=== PATIENT | female | born 1985 | race American Indian/Alaskan Native ===

== ENCOUNTER 2016-09-30 15:09 | Emergency (ER) | payer SELFPAY ==
[2016-09-30 17:02] LABS: Basophils % (Auto) 0.3 % (0.0-1.8); Eosinophils % (Auto) 0.7 % (0.0-4.3); Hematocrit 39.6 % (30.3-42.9); Hemoglobin 13.1 gm/dl (10.1-14.3); Mean Corpuscular HGB Conc 33 % (30-34); Mean Corpuscular Hemoglobin 31 pg (28-32); Mean Corpuscular Volume 95 fl (79-97); Platelet Count 265 K/mm3 (140-440); Red Blood Count 4.18 M/mm3 (3.65-5.03); Red Cell Distribution Width 14.2 % (13.2-15.2); White Blood Count 7.3 K/mm3 (4.5-11.0)
[2016-09-30 17:07] LABS: Alanine Aminotransferase 16 units/L (7-56); Albumin 4.3 g/dL (3.9-5); Albumin/Globulin Ratio 1.7 %; Alkaline Phosphatase 39 units/L (35-129); Anion Gap 19 mmol/L; BUN/Creatinine Ratio 11.66; Blood Urea Nitrogen 7 mg/dL (7-17); Calcium 9.1 mg/dL (8.4-10.2); Carbon Dioxide 22 mmol/L (22-30); Chloride 101.1 mmol/L (98-107); Glucose 86 mg/dL (65-100); Lipase 23 units/L (13-60); Potassium 3.8 mmol/L (3.6-5.0); Sodium 138 mmol/L (137-145); Total Protein 6.8 g/dL (6.3-8.2)
[2016-09-30 19:42] LABS: Bacteria,Urine 1+ /HPF (Negative); Bilirubin,Urine NEG (Negative); Blood,Urine NEG (Negative); Ketones,Urine NEG (Negative); Leukocyte Esterase,Urine TR (Negative); Mucus,Urine FEW /HPF; Nitrite,Urine NEG (Negative); Protein,Urine <15 mg/dL mg/dL (Negative); Urobilinogen,Urine < 2.0 mg/dL (<2.0)
--- NOTE | 2016-10-01 02:37 | Ultrasound Report ---
FINAL REPORT PROCEDURE: Obstetrical ultrasound, transvaginal and transabdominal TECHNIQUE: Real-time transabdominal and transvaginal sonography of the uterus, placenta, amniotic fluid, adnexa, and fetus was performed with image documentation. Measurements were obtained to determine age/size. M-mode Doppler was used to document heartbeat. CPT 23671 and 99848 HISTORY: positive COMPARISON: No prior studies are available for comparison. FINDINGS: ADDITIONAL GESTATION: None. CRL: 5.3 mm, which corresponds to a gestational age of: 6 weeks, 2 days. Yolk Sac: Normal. Embryonic Cardiac Activity: 1 1 7 beats per minute Gestational Sac: Normal. Amniotic fluid: Normal. Cervix: Normal. Right Ovary: There is a dominant cyst measuring 2.3 centimeters Left Ovary: Normal. Estimated delivery date: 05/25/2017 Uterus and adnexa: Normal. IMPRESSION: 1. Single live intrauterine gestation at approximately 6 weeks, 2 days. 2. EDC by US 05/25/2017 3. Complete anatomic survey at 18-20 weeks suggested.
--- NOTE | 2016-10-01 02:37 | Ultrasound Report ---
FINAL REPORT PROCEDURE: Obstetrical ultrasound, transvaginal and transabdominal TECHNIQUE: Real-time transabdominal and transvaginal sonography of the uterus, placenta, amniotic fluid, adnexa, and fetus was performed with image documentation. Measurements were obtained to determine age/size. M-mode Doppler was used to document heartbeat. CPT 00833 and 31646 HISTORY: positive COMPARISON: No prior studies are available for comparison. FINDINGS: ADDITIONAL GESTATION: None. CRL: 5.3 mm, which corresponds to a gestational age of: 6 weeks, 2 days. Yolk Sac: Normal. Embryonic Cardiac Activity: 1 1 7 beats per minute Gestational Sac: Normal. Amniotic fluid: Normal. Cervix: Normal. Right Ovary: There is a dominant cyst measuring 2.3 centimeters Left Ovary: Normal. Estimated delivery date: 05/25/2017 Uterus and adnexa: Normal. IMPRESSION: 1. Single live intrauterine gestation at approximately 6 weeks, 2 days. 2. EDC by US 05/25/2017 3. Complete anatomic survey at 18-20 weeks suggested.
[2016-10-01] MEDS ORDERED: ZOFRAN IV ONE (03:26)
[2016-10-01] MEDS ORDERED: NACL 0.9% 1000 ML 1,000 ML IV ONE (03:26)
--- NOTE | 2016-10-01 04:10 | Emergency Department Report ---
ED Abdominal Pain HPI - General Chief Complaint: Abdominal Pain Stated Complaint: STOMACH PAIN/NAUSEA/VAG SPOTTING Time Seen by Provider: 10/01/16 02:17 Source: patient Mode of arrival: Ambulatory Limitations: No Limitations - History of Present Illness Initial Comments: 30-year-old female with a past medical history of hypertension presents to the hospital complaining of nausea, vomiting and vaginal spotting 2 days. Patient had a recent home test but she also states she has gastroparesis. Patient is intermittent 7/10 crampy abdominal pain without aggravating or alleviating factors. She denies hematemesis, fever, hematochezia, diarrhea, or dysuria. Patient currently takes lisinopril/hctz and metoprolol for hypertension but has not had her medications in 3 days. It this is her fifth and she has 4 living children. Severity scale (0 -10): 6 - Related Data Home Medications Medication Instructions Recorded Confirmed Last Taken Dicyclomine [Bentyl] 10 mg PO QID 10/01/16 10/01/16 09/30/16 22:00 Lisinopril/Hydrochlorothiazide 1 tab PO QDAY 10/01/16 10/01/16 09/30/16 [Zestoretic 20-25 mg] Metoprolol Xl [Metoprolol 50 mg PO QDAY 10/01/16 10/01/16 09/30/16 SUCCINATE ER TAB] Omeprazole Magnesium [PriLOSEC Otc] 20 mg PO QID 10/01/16 10/01/16 09/30/16 22: 00 Previous Rx's Medication Instructions Recorded Last Taken Type Labetalol [Normodyne TAB] 200 mg PO BID #60 tablet 10/01/16 Unknown Rx Ondansetron [Zofran Odt] 4 mg PO Q8HR PRN #20 tab.rapdis 10/01/16 Unknown Rx Vit W-Ca,Fe,FA(<1 mg) 1 each PO DAILY #30 tablet 10/01/16 Unknown Rx [ Vitamins] Allergies Allergy/AdvReac Type Severity Reaction Status Date / Time No Known Allergies Allergy Unverified 09/30/16 16:24 ED Review of Systems ROS: Stated complaint: STOMACH PAIN/NAUSEA/VAG SPOTTING Other details as noted in HPI Comment: All other systems reviewed and negative Other: Constitutional: No fevers chills Eyes: No eye pain visual changes ENT: No ear pain or throat pain Neck: Denies pain Respiratory: Denies cough wheezing shortness of breath Cardiovascular: Denies chest pain, palpitations, syncope GI: As per HPI : Denies dysuria, urinary frequency, or urgency Musculoskeletal: Denies back pain, joint swelling Skin: Denies rash, lesions, erythema Neurologic: Denies headache, numbness, weakness Psychiatric: Denies suicidal ideation, hallucinations ED Past Medical Hx - Past Medical History Previous Medical History?: Yes Hx Hypertension: Yes Additional medical history: Gastroparesis - Surgical History Past Surgical History?: No - Social History Smoking Status: Never Smoker Substance Use Type: None - Medications Home Medications: Home Medications Medication Instructions Recorded Confirmed Last Taken Type Dicyclomine [Bentyl] 10 mg PO QID 10/01/16 10/01/16 09/30/16 22:00 History Labetalol [Normodyne TAB] 200 mg PO BID #60 tablet 10/01/16 Unknown Rx Lisinopril/Hydrochlorothiazide 1 tab PO QDAY 10/01/16 10/01/16 09/30/16 History [Zestoretic 20-25 mg] Metoprolol Xl [Metoprolol 50 mg PO QDAY 10/01/16 10/01/16 09/30/16 History SUCCINATE ER TAB] Omeprazole Magnesium [PriLOSEC Otc] 20 mg PO QID 10/01/16 10/01/16 09/30/16 22: 00 History Ondansetron [Zofran Odt] 4 mg PO Q8HR PRN #20 tab.rapdis 10/01/16 Unknown Rx Vit W-Ca,Fe,FA(<1 mg) 1 each PO DAILY #30 tablet 10/01/16 Unknown Rx [ Vitamins] ED Physical Exam - General Limitations: No Limitations - Other Other exam information: General: No limitations, patient is alert in no acute distress Head exam: Atraumatic, normocephalic Eyes exam: Normal appearance, ENT: Moist mucous membrane, normal oropharynx Neck exam: Normal inspection, full range of motion, no meningismus nontender Respiratory exam: Clear to auscultation bilateral, no wheezes, rales, crackles Cardiovascular: Normal rate and rhythm, normal heart sounds Abdomen: Soft, nondistended, mild suprapubic tenderness, with normal bowel sounds, no rebound, or guarding Extremity: Full range of motion normal inspection no deformity Back: Normal Inspection, full range of motion, no tenderness Neurologic: Alert, oriented x3, cranial nerves intact, no motor or sensory deficit Psychiatric: normal affect, normal mood Skin: Warm, dry, intact ED Course Vital Signs 09/30/16 10/01/16 10/01/16 16:19 02:25 02:27 Temperature 98.9 F Pulse Rate 105 H 90 Respiratory 16 16 16 Rate Blood Pressure 154/112 Blood Pressure 143/99 [Left] O2 Sat by Pulse 100 100 Oximetry - Reevaluation(s) Reevaluation #1: 10/01/16 04:13 Normal saline, Zofran ordered ED Medical Decision Making - Lab Data Result diagrams: 09/30/16 16:33 09/30/16 16:33 Lab Results 09/30/16 09/30/16 09/30/16 Range/Units 16:33 16:33 18:48 WBC 7.3 (4.5-11.0) K/mm3 RBC 4.18 (3.65-5.03) M/mm3 Hgb 13.1 (10.1-14.3) gm/dl Hct 39.6 (30.3-42.9) % MCV 95 (79-97) fl MCH 31 (28-32) pg MCHC 33 (30-34) % RDW 14.2 (13.2-15.2) % Plt Count 265 (140-440) K/mm3 Lymph % (Auto) 27.7 (13.4-35.0) % [place] % (Auto) 8.0 H (0.0-7.3) % Eos % (Auto) 0.7 (0.0-4.3) % Baso % (Auto) 0.3 (0.0-1.8) % Lymph # 2.0 (1.2-5.4) K/mm3 [place] # 0.6 (0.0-0.8) K/mm3 Eos # 0.1 (0.0-0.4) K/mm3 Baso # 0.0 (0.0-0.1) K/mm3 Seg Neutrophils % 63.3 (40.0-70.0) % Seg Neutrophils # 4.6 (1.8-7.7) K/mm3 Sodium 138 (137-145) mmol/L Potassium 3.8 (3.6-5.0) mmol/L Chloride 101.1 (98-107) mmol/L Carbon Dioxide 22 (22-30) mmol/L Anion Gap 19 mmol/L BUN 7 (7-17) mg/dL Creatinine 0.6 L (0.7-1.2) mg/dL Estimated GFR > 60 ml/min BUN/Creatinine Ratio 11.66 % Glucose 86 (65-100) mg/dL Calcium 9.1 (8.4-10.2) mg/dL Total Bilirubin 0.60 (0.1-1.2) mg/dL AST 15 (5-40) units/L ALT 16 (7-56) units/L Alkaline Phosphatase 39 (35-129) units/L Total Protein 6.8 (6.3-8.2) g/dL Albumin 4.3 (3.9-5) g/dL Albumin/Globulin Ratio 1.7 % Lipase 23 (13-60) units/L HCG, Quant (0-4) mIU/mL Urine Color Yellow (Yellow) Urine Turbidity Clear (Clear) Urine pH 6.0 (5.0-7.0) Ur Specific [place] 1.017 (1.003-1.030) Urine Protein <15 mg/dl (Negative) mg/dL Urine Glucose (UA) Neg (Negative) mg/dL Urine Ketones Neg (Negative) mg/dL Urine Blood Neg (Negative) Urine Nitrite Neg (Negative) Urine Bilirubin Neg (Negative) Urine Urobilinogen < 2.0 (<2.0) mg/dL Ur Leukocyte Esterase Tr (Negative) Urine WBC (Auto) 6.0 (0.0-6.0) /HPF Urine RBC (Auto) 3.0 (0.0-6.0) /HPF U Epithel Cells (Auto) 2.0 (0-13.0) /HPF Urine Bacteria (Auto) 1+ (Negative) /HPF Urine Mucus Few /HPF Urine HCG, Qual Positive A (Negative) Blood Type Antibody Screen 10/01/16 10/01/16 Range/Units 03:14 03:14 WBC (4.5-11.0) K/mm3 RBC (3.65-5.03) M/mm3 Hgb (10.1-14.3) gm/dl Hct (30.3-42.9) % MCV (79-97) fl MCH (28-32) pg MCHC (30-34) % RDW (13.2-15.2) % Plt Count (140-440) K/mm3 Lymph % (Auto) (13.4-35.0) % [place] % (Auto) (0.0-7.3) % Eos % (Auto) (0.0-4.3) % Baso % (Auto) (0.0-1.8) % Lymph # (1.2-5.4) K/mm3 [place] # (0.0-0.8) K/mm3 Eos # (0.0-0.4) K/mm3 Baso # (0.0-0.1) K/mm3 Seg Neutrophils % (40.0-70.0) % Seg Neutrophils # (1.8-7.7) K/mm3 Sodium (137-145) mmol/L Potassium (3.6-5.0) mmol/L Chloride (98-107) mmol/L Carbon Dioxide (22-30) mmol/L Anion Gap mmol/L BUN (7-17) mg/dL Creatinine (0.7-1.2) mg/dL Estimated GFR ml/min BUN/Creatinine Ratio % Glucose (65-100) mg/dL Calcium (8.4-10.2) mg/dL Total Bilirubin (0.1-1.2) mg/dL AST (5-40) units/L ALT (7-56) units/L Alkaline Phosphatase (35-129) units/L Total Protein (6.3-8.2) g/dL Albumin (3.9-5) g/dL Albumin/Globulin Ratio % Lipase (13-60) units/L HCG, Quant 13744 H (0-4) mIU/mL Urine Color (Yellow) Urine Turbidity (Clear) Urine pH (5.0-7.0) Ur Specific [place] (1.003-1.030) Urine Protein (Negative) mg/dL Urine Glucose (UA) (Negative) mg/dL Urine Ketones (Negative) mg/dL Urine Blood (Negative) Urine Nitrite (Negative) Urine Bilirubin (Negative) Urine Urobilinogen (<2.0) mg/dL Ur Leukocyte Esterase (Negative) Urine WBC (Auto) (0.0-6.0) /HPF Urine RBC (Auto) (0.0-6.0) /HPF U Epithel Cells (Auto) (0-13.0) /HPF Urine Bacteria (Auto) (Negative) /HPF Urine Mucus /HPF Urine HCG, Qual (Negative) Blood Type A POSITIVE Antibody Screen TNR - Radiology Data Radiology results: report reviewed (transvaginal/pelvic ultrasound: 6 week 2 day IUP positive heart) - Medical Decision Making Blood type A+ therefore patient does not require RhoGAM. Patient feels better with ED treatment. Will discharge home with TRAINING REPRESENTATIVE follow-up and symptomatic treatment - Differential Diagnosis gastritis, , gastroparesis, ectopic, UTI Critical Care Time: No Critical care attestation.: If time is entered above; I have spent that time in minutes in the direct care of this critically ill patient, excluding procedure time. ED Disposition Clinical Impression: 6 weeks gestation of , Nausea and vomiting during , Threatened miscarriage, HTN (hypertension), Type A blood, Rh positive Disposition: DC-01 TO HOME OR SELFCARE Is pt being admited?: No Does the pt Need Aspirin: No Condition: Stable Instructions: Threatened Miscarriage (ED), Hypertension (ED) Additional Instructions: Take the medication as prescribed. Return symptoms worsen follow-up with TRAINING REPRESENTATIVE in a primary care doctor. Stop your current blood pressure medication and take the medication prescribed since it is safe in . You will need close follow-up to ensure that the dose is adequate to control your blood pressure. Prescriptions: Labetalol [Normodyne TAB] 200 mg PO BID #60 tablet Ondansetron [Zofran Odt] 4 mg PO Q8HR PRN #20 tab.rapdis PRN Reason: Nausea And Vomiting Vit W-Ca,Fe,FA(<1 mg) [ Vitamins] 1 each PO DAILY #30 tablet Referrals: [facility] [Provider Group] - 3-5 Days (primary care clinic) LAUREANO BAÑUELOS MD [Staff Physician] - 3-5 Days (medical assistant ob gyn) ROME SIMON MD [Staff Physician] - 3-5 Days (primary care doctor) Forms: Work/School Release Form(ED) Time of Disposition: 05:15
[2016-10-01 05:29] VITALS: BP 126/97
== END 2016-10-01 05:33 | disposition home or self-care (01) ==
LOC: ED 15:09
DX: O20.0 Threatened abortion (principal); O21.9 Vomiting of pregnancy, unspecified; R11.0 Nausea; I10 Essential (primary) hypertension; Z3A.01 Less than 8 weeks gestation of pregnancy
CPT/HCPCS: 36415; 76801; 76817; 80053; 81001; 81025; 83690; 84702; 85025; 86850; 86900; 86901; 96361; 96374; 99284; J2405; J7030

== ENCOUNTER 2017-06-16 02:55 | Emergency (ER) | payer MEDICAID ==
[2017-06-16] MEDS ORDERED: ZOFRAN IV ONE (03:45)
[2017-06-16] MEDS ORDERED: NACL 0.9% 1000 ML 1,000 ML IV ONE ×2 (03:45→05:48)
[2017-06-16] MEDS ORDERED: NACL 0.9% 1000 ML 1,000 ML ONE (03:46)
[2017-06-16] MEDS ORDERED: ZOFRAN ONE (03:46)
[2017-06-16 03:51] LABS: Basophils % (Auto) 0.4 % (0.0-1.8); Eosinophils % (Auto) 0.6 % (0.0-4.3); Hematocrit 31.2 % (30.3-42.9); Lymphocytes # (Auto) 2.6 K/mm3 (1.2-5.4); Mean Corpuscular HGB Conc 32 % (30-34); Mean Corpuscular Hemoglobin 29 pg (28-32); Mean Corpuscular Volume 90 fl (79-97); Monocytes # (Auto) 0.3 K/mm3 (0.0-0.8); Monocytes % (Auto) 5.5 % (0.0-7.3); Platelet Count 262 K/mm3 (140-440); Red Blood Count 3.48 M/mm3 (3.65-5.03); Red Cell Distribution Width 14.1 % (13.2-15.2)
[2017-06-16] MEDS ORDERED: MORPHINE IV ONE ×2 (04:26→05:48)
[2017-06-16] MEDS ORDERED: MORPHINE ONE (04:28)
[2017-06-16 05:45] VITALS: BP 128/95
--- NOTE | 2017-06-16 06:12 | Ultrasound Report ---
FINAL REPORT EXAM: US PELVIC COMPLETE HISTORY: vaginal bleeding TECHNIQUE: Routine transabdominal imaging was obtained of the pelvis. Doppler interrogation of the adnexa was obtained. FINDINGS: The uterus is anteverted measuring 16.6 cm x 4.9 cm x 6.8 cm. The endometrial thickness is 5.1 mm and is homogeneous. Ventral to the cervix in the vaginal canal is a complex mass measuring 7.1 cm x 7.2 cm x 7.9 cm with small amount of adjacent free fluid. Given the patient's history in this may represent a complex blood clot/hematoma. Both ovaries are appropriate size contour blood flow and echotexture. The right ovary measures 3.3 cm x 1.6 cm x 2.8 cm. The left ovary measures 2.9 cm x 1.8 cm x 3.1 cm. IMPRESSION: Enlarged uterus with endometrial thickness of 5.1 millimeters. Indeterminate complex echogenic mass in the vaginal canal adjacent to the cervix with small amount of free fluid with measurements as described. Given the patient's history this is most likely a complex hematoma/blood clot. Normal ovaries.
[2017-06-16 06:31] LABS: Bacteria,Urine 1+ /HPF (Negative); Bilirubin,Urine NEG (Negative); Blood,Urine LG (Negative); Color,Urine Red (Yellow); Mucus,Urine FEW /HPF; Urobilinogen,Urine < 2.0 mg/dL (<2.0)
[2017-06-16 06:38] LABS: RBC,Urine > 182.0 /HPF (0.0-6.0)
[2017-06-16] MEDS ORDERED: ROCEPHIN/NS 1 GM/50 ML 1 GM/50 ML BAG IV ONE (06:44)
[2017-06-16] MEDS: cefTRIAXone 1 GM in NACL 0.9% 20 ML IV ONE ×2 (06:53→08:16)
--- NOTE | 2017-06-16 07:16 | Emergency Department Report ---
ED General Adult HPI - General Chief complaint: Vaginal Bleeding Stated complaint: VAG BLEEDING; 4WKS S/P VAG DEL Time Seen by Provider: 06/16/17 06:44 Source: patient Mode of arrival: Ambulatory Limitations: No Limitations - History of Present Illness Initial comments: The patient is 4 weeks . She noted some vaginal bleeding and cramping. His also been having some dysuria. She stated the bleeding was more than a usual period. However it has resolved now. She denies fever chills nausea vomiting or any substantial ongoing abdominal pain. She was delivered at [facility]. -: Gradual, minutes(s) Location: abdomen Radiation: abdomen Quality: other (cramping) Consistency: intermittent Improves with: none Worsens with: none Associated Symptoms: denies other symptoms Treatments Prior to Arrival: none - Related Data Home Medications Medication Instructions Recorded Confirmed Last Taken Dicyclomine [Bentyl] 10 mg PO QID 10/01/16 10/01/16 09/30/16 22:00 Lisinopril/Hydrochlorothiazide 1 tab PO QDAY 10/01/16 10/01/16 09/30/16 [Zestoretic 20-25 mg] Metoprolol Xl [Metoprolol 50 mg PO QDAY 10/01/16 10/01/16 09/30/16 SUCCINATE ER TAB] Omeprazole Magnesium [PriLOSEC Otc] 20 mg PO QID 10/01/16 10/01/16 09/30/16 22: 00 Previous Rx's Medication Instructions Recorded Last Taken Type Labetalol [Normodyne TAB] 200 mg PO BID #60 tablet 10/01/16 Unknown Rx Ondansetron [Zofran Odt] 4 mg PO Q8HR PRN #20 tab.rapdis 10/01/16 Unknown Rx Vit Calc,Iron,Folic 1 each PO DAILY #30 tablet 10/01/16 Unknown Rx [ Vitamins] Cefuroxime Axetil [Ceftin] 250 mg PO Q12H #20 ml 06/16/17 Unknown Rx Ferrous Gluconate [Fergon 325 MG 325 mg PO TID #20 tablet 06/16/17 Unknown Rx tab] HYDROcodone/APAP 5-325 [[place] 1 each PO Q4HR PRN #10 tablet 06/16/17 Unknown Rx 5/325] Allergies Allergy/AdvReac Type Severity Reaction Status Date / Time No Known Allergies Allergy Unverified 09/30/16 16:24 ED Review of Systems ROS: Stated complaint: VAG BLEEDING; 4WKS S/P VAG DEL Other details as noted in HPI Constitutional: denies: chills, fever Eyes: denies: eye pain, eye discharge, vision change ENT: denies: ear pain, throat pain Respiratory: denies: cough, shortness of breath, wheezing Cardiovascular: denies: chest pain, palpitations Endocrine: no symptoms reported Gastrointestinal: as per HPI, abdominal pain. denies: nausea, diarrhea Genitourinary: dysuria. denies: urgency, discharge Musculoskeletal: denies: back pain, joint swelling, arthralgia Skin: denies: rash, lesions Neurological: denies: headache, weakness, paresthesias Psychiatric: denies: anxiety, depression Hematological/Lymphatic: denies: easy bleeding, easy bruising ED Past Medical Hx - Past Medical History Previous Medical History?: Yes Hx Hypertension: Yes Additional medical history: Gastroparesis - Surgical History Past Surgical History?: No - Social History Smoking Status: Former Smoker Substance Use Type: Alcohol - Medications Home Medications: Home Medications Medication Instructions Recorded Confirmed Last Taken Type Dicyclomine [Bentyl] 10 mg PO QID 10/01/16 10/01/16 09/30/16 22:00 History Labetalol [Normodyne TAB] 200 mg PO BID #60 tablet 10/01/16 Unknown Rx Lisinopril/Hydrochlorothiazide 1 tab PO QDAY 10/01/16 10/01/16 09/30/16 History [Zestoretic 20-25 mg] Metoprolol Xl [Metoprolol 50 mg PO QDAY 10/01/16 10/01/16 09/30/16 History SUCCINATE ER TAB] Omeprazole Magnesium [PriLOSEC Otc] 20 mg PO QID 10/01/16 10/01/16 09/30/16 22: 00 History Ondansetron [Zofran Odt] 4 mg PO Q8HR PRN #20 tab.rapdis 10/01/16 Unknown Rx Vit Calc,Iron,Folic 1 each PO DAILY #30 tablet 10/01/16 Unknown Rx [ Vitamins] Cefuroxime Axetil [Ceftin] 250 mg PO Q12H #20 ml 06/16/17 Unknown Rx Ferrous Gluconate [Fergon 325 MG 325 mg PO TID #20 tablet 06/16/17 Unknown Rx tab] HYDROcodone/APAP 5-325 [[place] 1 each PO Q4HR PRN #10 tablet 06/16/17 Unknown Rx 5/325] ED Physical Exam - General Limitations: No Limitations General appearance: alert, in no apparent distress - Head Head exam: Present: atraumatic, normocephalic - Eye Eye exam: Present: normal appearance, PERRL. Absent: scleral icterus - ENT ENT exam: Present: normal exam, mucous membranes moist - Neck Neck exam: Present: normal inspection. Absent: tenderness, meningismus - Respiratory Respiratory exam: Present: normal lung sounds bilaterally. Absent: respiratory distress - Cardiovascular Cardiovascular Exam: Present: regular rate, normal rhythm. Absent: systolic murmur, diastolic murmur, rubs, gallop - GI/Abdominal GI/Abdominal exam: Present: soft, normal bowel sounds. Absent: distended, tenderness, guarding, rebound, rigid - External exam: Absent: bleeding (no active bleeding) - Extremities Exam Extremities exam: Present: normal inspection - Back Exam Back exam: Present: normal inspection - Neurological Exam Neurological exam: Present: alert, oriented X3, CN II-XII intact. Absent: motor sensory deficit - Psychiatric Psychiatric exam: Present: normal affect, normal mood - Skin Skin exam: Present: warm, dry, intact, normal color. Absent: rash ED Course Vital Signs 06/16/17 06/16/17 06/16/17 03:14 03:34 03:44 Temperature 98.2 F 98.6 F Pulse Rate 145 H 124 H Respiratory 20 16 Rate Blood Pressure 150/114 138/100 Blood Pressure 138/100 [Right] O2 Sat by Pulse 99 90 100 Oximetry 06/16/17 06/16/17 06/16/17 03:45 04:00 04:15 Temperature Pulse Rate Respiratory 16 Rate Blood Pressure 138/102 145/112 158/115 Blood Pressure [Right] O2 Sat by Pulse 98 99 99 Oximetry 06/16/17 06/16/17 06/16/17 04:30 04:41 04:46 Temperature Pulse Rate Respiratory 16 Rate Blood Pressure 161/112 124/80 Blood Pressure [Right] O2 Sat by Pulse 100 100 Oximetry 06/16/17 06/16/17 06/16/17 05:11 05:35 05:45 Temperature Pulse Rate 95 H Respiratory 16 16 Rate Blood Pressure 128/95 Blood Pressure 128/95 [Right] O2 Sat by Pulse 99 98 Oximetry 06/16/17 06/16/17 05:54 06:24 Temperature Pulse Rate Respiratory 16 16 Rate Blood Pressure Blood Pressure [Right] O2 Sat by Pulse Oximetry - Reevaluation(s) Reevaluation #1: Patient remained hemodynamically stable. She will be given an antibiotic for presumptive UTI, analgesia and ferrous gluconate. 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 06/16/17 07:16 ED Medical Decision Making - Lab Data Result diagrams: 06/16/17 03:33 Laboratory Results - last 24 hr 06/16/17 06/16/17 06/16/17 03:33 03:33 03:33 WBC 6.1 RBC 3.48 L Hgb 10.0 L Hct 31.2 MCV 90 MCH 29 MCHC 32 RDW 14.1 Plt Count 262 Lymph % (Auto) 42.0 H [place] % (Auto) 5.5 Eos % (Auto) 0.6 Baso % (Auto) 0.4 Lymph # 2.6 [place] # 0.3 Eos # 0.0 Baso # 0.0 Seg Neutrophils % 51.5 Seg Neutrophils # 3.1 HCG, Quant < 2 Urine Color Urine Turbidity Urine pH Ur Specific [place] Urine Protein Urine Glucose (UA) Urine Ketones Urine Blood Urine Nitrite Urine Bilirubin Urine Urobilinogen Ur Leukocyte Esterase Urine WBC (Auto) Urine RBC (Auto) U Epithel Cells (Auto) Urine Bacteria (Auto) Urine Mucus Blood Type A POSITIVE Antibody Screen Negative 06/16/17 05:45 WBC RBC Hgb Hct MCV MCH MCHC RDW Plt Count Lymph % (Auto) [place] % (Auto) Eos % (Auto) Baso % (Auto) Lymph # [place] # Eos # Baso # Seg Neutrophils % Seg Neutrophils # HCG, Quant Urine Color Red Urine Turbidity Clear Urine pH 6.0 Ur Specific [place] 1.016 Urine Protein 100 mg/dl Urine Glucose (UA) Neg Urine Ketones Neg Urine Blood Lg Urine Nitrite Neg Urine Bilirubin Neg Urine Urobilinogen < 2.0 Ur Leukocyte Esterase Tr Urine WBC (Auto) 90.0 H Urine RBC (Auto) > 182.0 U Epithel Cells (Auto) 2.0 Urine Bacteria (Auto) 1+ Urine Mucus Few Blood Type Antibody Screen - Radiology Data Radiology results: report reviewed (some intrauterine clot noted otherwise unremarkable) Critical care attestation.: If time is entered above; I have spent that time in minutes in the direct care of this critically ill patient, excluding procedure time. ED Disposition Clinical Impression: Hemorrhagic cystitis, Uterine bleeding, Anemia, iron deficiency Disposition: TO HOME OR SELFCARE Is pt being admited?: No Does the pt Need Aspirin: No Condition: Stable Instructions: Dysfunctional Uterine Bleeding (ED), Urinary Tract Infection in Women (ED) Additional Instructions: Increase fluids. Monitor temperature. Return if any significant pain, nausea vomiting or fever. 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 Rx as directed. Prescriptions: Cefuroxime Axetil [Ceftin] 250 mg PO Q12H #20 ml Ferrous Gluconate [Fergon 325 MG tab] 325 mg PO TID #20 tablet HYDROcodone/APAP 5-325 [[place] 5/325] 1 each PO Q4HR PRN #10 tablet PRN Reason: Pain Referrals: PABLO THRASHER MD [Other] - 2-3 Days Time of Disposition: 07:21
== END 2017-06-16 08:42 | disposition home or self-care (01) ==
LOC: ED 02:55
DX: N30.90 Cystitis, unspecified without hematuria (principal); N39.0 Urinary tract infection, site not specified; D50.9 Iron deficiency anemia, unspecified
CPT/HCPCS: 36415; 76856; 81001; 84702; 85025; 86850; 86900; 86901; 87086; 96361; 96365; 96375; 96376; 99284; J0696; J2270; J2405; J7030